=== PATIENT | male | born 1935 | race Asian ===

== ENCOUNTER 2023-12-01 18:12 | Emergency (ER) | payer OTHER ==
[2023-12-01 18:38] VITALS: BMI 29.2
[2023-12-01] MEDS ORDERED: SODIUM CHLORIDE 1,000 ML IV SCH (19:00)
[2023-12-01] MEDS: ASPIRIN 81 MG CHEWABLE TABLETS PO ONE (19:58)
[2023-12-01] MEDS: DEXTROSE 5%-NORMAL SALINE 1,000 ML IV SCH (20:28)
[2023-12-01 20:32] VITALS: BP 126/84; PULSE 81; RESP 24; TEMP 98.2
[2023-12-01 21:00] LABS: BASO % 0.3 % (0-2.0); HEMATOCRIT 41.1 % (35.4-49); HEMOGLOBIN 13.6 GM/dL (11.7-16.9); MCH 29.8 pg (25.7-33.7); MCHC 33.2 g/dl (32.0-35.9); MEAN CELL VOLUME 89.6 fl (80-96); MEAN PLT VOLUME 7.5 fl (7.5-11.1); MONO % 7.9 % (3.8-10.2); NEUT % 77.8 % (42.8-82.8); PLATELET COUNT 183 10^3/uL (134-434); RBC 4.58 M/mm3 (4.00-5.60); RDW 13.7 % (11.9-15.9); WHITE BLOOD COUNT 8.8 K/mm3 (4.0-10.0)
[2023-12-01 21:07] LABS: INR 1.13 (0.83-1.09); PROTHROMBIN TIME (PATIENT) 13.1 SEC (9.7-13.0)
[2023-12-01 21:08] LABS: POTASSIUM 4.3 mmol/L (3.5-5.1)
[2023-12-01 21:09] LABS: ACTIVATED PTT 26.9 SECONDS (25.2-36.5)
[2023-12-01 21:11] LABS: ALBUMIN 3.5 g/dl (3.4-5.0); CALCIUM 8.5 mg/dL (8.5-10.1)
[2023-12-01 21:13] LABS: BLOOD UREA NITROGEN 20.9 mg/dL (7-18)
[2023-12-01 21:15] LABS: BILIRUBIN,TOTAL 0.8 mg/dL (0.2-1); CREATININE 0.7 mg/dL (0.55-1.3); TOT PROT 7.2 g/dl (6.4-8.2)
== END 2023-12-02 00:22 | disposition short-term general hospital (02) ==
LOC: JER 18:12
PROC: 3E033GC Introduction of Other Therapeutic Substance into Peripheral Vein, Percutaneous Approach (ICD-10-PCS; principal; 2023-12-01)
DX: R11.10 Vomiting, unspecified (principal); R27.8 Other lack of coordination; I61.5 Nontraumatic intracerebral hemorrhage, intraventricular; R41.82 Altered mental status, unspecified; R42 Dizziness and giddiness; Z20.822 Contact with and (suspected) exposure to COVID-19
CPT/HCPCS: 0241U-QW; 36415; 70450-TC; 80053; 80061; 82550; 82962; 83036; 83880; 84484; 85025; 85610; 85730; 86850; 86900; 86901; 99285-25; J2597